=== PATIENT | male | born 1975 | race Two or more races ===

== ENCOUNTER 2018-12-04 06:52 | Emergency (ER) | payer OTHER ==
[2018-12-04] MEDS ORDERED: FAMOTIDINE 20 MG/50 ML IVPB 20 MG/50 ML MG IVPB ONE ×2 (07:58→08:05)
[2018-12-04] MEDS ORDERED: PANTOPRAZOLE 40 MG TABLET (FP) PO ONE (07:58)
[2018-12-04] MEDS ORDERED: MECLIZINE HCL 25 MG TABLET (FP) PO ONE (07:58)
[2018-12-04] MEDS ORDERED: MECLIZINE HCL 25 MG TABLET (FP) ONE (08:05)
[2018-12-04] MEDS ORDERED: PANTOPRAZOLE 40 MG TABLET (FP) ONE (08:05)
[2018-12-04 08:11] VITALS: BP 119/82; PULSE 71; TEMP 98; BMI 32.5
[2018-12-04 08:38] LABS: HEMATOCRIT 44.3 % (35.4-49); HEMOGLOBIN 15.6 GM/dL (11.7-16.9); LYMPH % 34.1 % (8-40); MCH 29.4 pg (25.7-33.7); MCHC 35.2 g/dl (32.0-35.9); MEAN CELL VOLUME 83.6 fl (80-96); MEAN PLT VOLUME 8.7 fl (7.5-11.1); NEUT % 57.9 % (42.8-82.8); PLATELET COUNT 229 K/MM3 (134-434); RDW 13.4 % (11.9-15.9); WHITE BLOOD COUNT 4.8 K/mm3 (4.0-10.0)
--- NOTE | 2018-12-04 08:40 | PDOC ---
History of Present Illness - General Chief Complaint: Chest Pain Stated Complaint: RIGHT CHEST PAIN/NAUSEA Time Seen by Provider: 12/04/18 07:27 History Source: Patient Exam Limitations: No Limitations - History of Present Illness Initial Comments: 12/04/18 08:36 43-year-old male with no past medical history presents with 2 complaints. The patient reports that yesterday he was in his usual state health, he woke up this morning with approximately at 4:00 AM, the patient suddenly felt vertiginous-like symptoms. Worsened with movements and IV movements. Stated when he rested in bed that the symptoms improved. Denies headaches. First-time episode. Incidentally, patient also reported 2 weeks of intermittent left upper quadrant pain. Stated that burning like in nature worsened with eating spicy foods. Denies short of breath or exertional component. Denies any family history of cardiac disease. Smokes intermittent cigarettes. Denies chest pain at the moment. Past History - Past Medical History Allergies/Adverse Reactions: Allergies Allergy/AdvReac Type Severity Reaction Status Date / Time No Known Allergies Allergy Verified 12/04/18 07:48 Home Medications: Ambulatory Orders Meclizine HCl 25 mg PO Q6H PRN #20 tablet 12/04/18 Pantoprazole Sodium [Protonix] 40 mg PO DAILY #30 tablet. 12/04/18 Ranitidine HCl [Zantac] 150 mg PO BID PRN #20 tablet 12/04/18 COPD: No - Immunization History Immunization Up to Date: No - Suicide/Smoking/Psychosocial Hx Smoking History: Never smoked Have you smoked in the past 12 months: No Information on smoking cessation initiated: No Hx Alcohol Use: No Drug/Substance Use Hx: No Review of Systems - Review of Systems Able to Perform ROS?: Yes Comments:: 12/04/18 08:37 GENERAL/CONSTITUTIONAL: [No fever or chills. No weakness. No weight change.] HEAD, EYES, EARS, NOSE AND THROAT: [No change in vision. No ear pain or discharge. No sore throat.] CARDIOVASCULAR: [No chest pain or shortness of breath.] RESPIRATORY: [No cough, wheezing, or hemoptysis.] GASTROINTESTINAL: [No nausea, vomiting, diarrhea or constipation. No rectal bleeding.] +abdominal pain. GENITOURINARY: [No dysuria, frequency, or change in urination.] MUSCULOSKELETAL: [No joint or muscle swelling or pain. No neck or back pain.] SKIN AND BREASTS: [No rash or easy bruising.] NEUROLOGIC: [No headache, loss of consciousness, or loss of sensation.] +vertigo PSYCHIATRIC: [No depression or anxiety.] ENDOCRINE: [No increased thirst. No abnormal weight change.] HEMATOLOGIC/LYMPHATIC: [No anemia, easy bleeding, or history of blood clots.] ALLERGIC/IMMUNOLOGIC: [No hives or skin allergy. No latex allergy.] *Physical Exam - Vital Signs Last Vital Signs Temp Pulse Resp BP Pulse Ox 98.0 F 71 16 119/82 98 12/04/18 07:00 12/04/18 07:00 12/04/18 07:00 12/04/18 07:00 12/04/18 07:57 - Physical Exam Comments: 12/04/18 08:38 GENERAL: Awake, alert, and fully oriented, in no acute distress HEAD: No signs of trauma EYES: PERRLA, EOMI, sclera anicteric, conjunctiva clear ENT: Auricles normal inspection, hearing grossly normal, nares patentMoist mucosa NECK: Normal ROM, supple LUNGS: Breath sounds equal, clear to auscultation bilaterally. No wheezes, and no crackles HEART: Regular rate and rhythm, normal S1 and S2, no murmurs, rubs or gallops ABDOMEN: Soft, No guarding, no rebound. No masses. + TTP LUQ. EXTREMITIES: Normal range of motion, no edema. No clubbing or cyanosis. No cords, erythema, or tenderness NEUROLOGICAL: Cranial nerves II through XII intact. Normal speech, no dysmetria. rapid alternating normal. 5/5 strength upper and lower extremities. Sensation intact throughout. No pronator drift. +jack pal pike maneuver. SKIN: Warm, Dry, normal turgor, no rashes or lesions noted. Moderate Sedation - Procedure Monitoring Vital Signs: Procedure Monitoring Vital Signs Temperature 98.0 F 12/04/18 07:00 Pulse Rate 71 12/04/18 07:00 Respiratory Rate 16 12/04/18 07:00 Blood Pressure 119/82 12/04/18 07:00 O2 Sat by Pulse Oximetry (%) 98 12/04/18 07:57 Heart Score/ECG Review #1 ECG reviewed & interpreted by me at: 07:20 12/04/18 08:40 NSR 63, no std/connie, normal axis, normal intervals, QTC 419 msec ED Treatment Course - LABORATORY CBC & Chemistry Diagram: 12/04/18 08:17 12/04/18 08:17 - RADIOLOGY Radiology Studies Ordered: Category Date Time Status CHEST X-RAY PORTABLE* [RAD] Stat Radiology 12/04/18 07:58 Completed - Medications Given in the ED: ED Medications Discontinued Medications Generic Name Dose Route Start Last Admin Trade Name dAriana PRN Reason Stop Dose Admin Famotidine/Sodium Chloride 20 mg in 50 mls @ 100 mls/hr 12/04/18 07:58 08:25 Pepcid 20 Mg Premixed Ivpb - IVPB 12/04/18 08:27 100 mls/hr ONCE ONE Administration Meclizine HCl 50 mg 12/04/18 07:58 12/04/18 08:25 Antivert - PO 12/04/18 07:59 50 mg ONCE ONE Administration Pantoprazole Sodium 40 mg 12/04/18 07:58 12/04/18 08:25 Protonix - PO 12/04/18 07:59 40 mg ONCE ONE Administration Medical Decision Making - Medical Decision Making 12/04/18 08:39 Vital Signs Temp Pulse Resp BP Pulse Ox 98.0 F 71 16 119/82 98 12/04/18 07:00 12/04/18 07:00 12/04/18 07:00 12/04/18 07:00 12/04/18 07:57 1. Vertigo: This is likely peripheral vertigo and unlikely be to be central. Trial antivert, IVF and reassess. 2. Abdominal pain. This is not likely to be ACS and more likely to be gastritis vs. PUD. Labs including lipase, troponin (though again, unlikely to be ACS). Trial GERD medications and reassess. 12/04/18 09:32 CBC, BMP 12/04/18 08:17 12/04/18 08:17 CMP Sodium 140 mmol/L (136-145) 12/04/18 08:17 Potassium 4.1 mmol/L (3.5-5.1) 12/04/18 08:17 Chloride 107 mmol/L (98-107) 12/04/18 08:17 Carbon Dioxide 29 mmol/L (21-32) 12/04/18 08:17 Anion Gap 5 MMOL/L (8-16) L 12/04/18 08:17 BUN 16 mg/dL (7-18) 12/04/18 08:17 Creatinine 0.9 mg/dL (0.55-1.3) 12/04/18 08:17 Creat Clearance w eGFR > 60 (>60) 12/04/18 08:17 Random Glucose 93 mg/dL (74-106) 12/04/18 08:17 Calcium 8.7 mg/dL (8.5-10.1) 12/04/18 08:17 Total Bilirubin 0.5 mg/dL (0.2-1) 12/04/18 08:17 AST 15 U/L (15-37) 12/04/18 08:17 ALT 33 U/L (13-61) 12/04/18 08:17 Alkaline Phosphatase 83 U/L (45-117) 12/04/18 08:17 Creatine Kinase 104 U/L (26-308) 12/04/18 08:17 Troponin I < 0.02 ng/ml (0.00-0.05) 12/04/18 08:17 Total Protein 6.6 g/dl (6.4-8.2) 12/04/18 08:17 Albumin 3.7 g/dl (3.4-5.0) 12/04/18 08:17 Lipase 194 U/L (73-393) 12/04/18 08:17 Labs reviewed. No acute findings. Chest xray reviewed. No acute findings. Vertigo now resolved. GERD-like pain resolved. Pt feels comfortable going home. Discharge diagnosis: Peripheral vertigo and gastritis I discussed the physical exam findings, ancillary test results and final diagnoses with the patient. I answered all of the patient's questions. The patient was satisfied with the care received and felt comfortable with the discharge plan and treatment plan. The patient will call their primary care physician within 24 hours to arrange follow-up and will return to the Emergency Department with any new, persistant or worsening symptoms. *DC/Admit/Observation/Transfer Diagnosis at time of Disposition: Gastritis Qualifiers: Gastritis type: unspecified gastritis Chronicity: acute Gastritis bleeding: without bleeding Qualified Code(s): K29.00 - Acute gastritis without bleeding Peripheral vertigo Qualifiers: Laterality: unspecified laterality Qualified Code(s): H81.399 - Other peripheral vertigo, unspecified ear - Discharge Dispostion Disposition: HOME Condition at time of disposition: Improved Decision to Admit order: No - Prescriptions Prescriptions: Meclizine HCl 25 mg PO Q6H PRN #20 tablet PRN Reason: Vertigo Pantoprazole Sodium [Protonix] 40 mg PO DAILY #30 tablet. Ranitidine HCl [Zantac] 150 mg PO BID PRN #20 tablet PRN Reason: Gastritis - Referrals - Patient Instructions Printed Discharge Instructions: DI for Vertigo, DI for Gastritis Additional Instructions: Your workup including chest xray, labs including troponin, and EKG is normal. I believe that you have had something called peripheral vertigo. Take 25 mg meclizine every 6 hours as needed for dizziness. It may take several days before your symptoms resolve. For your stomach pain, it is likely gastritis. Please avoid spicy foods. Take 40 mg protonix once a day. For additional relief, take 150 mg zantac every 12 hours as needed. Please follow up with your doctor. If you have difficulty breathing or uncontrollable chest pain, please return to the ER. - Post Discharge Activity
[2018-12-04 09:07] LABS: ALBUMIN 3.7 g/dl (3.4-5.0); ALK PHOS 83 U/L (45-117); ANION GAP 5 MMOL/L (8-16); BILIRUBIN,TOTAL 0.5 mg/dL (0.2-1); BLOOD UREA NITROGEN 16 mg/dL (7-18); CALCIUM 8.7 mg/dL (8.5-10.1); CHLORIDE 107 mmol/L (98-107); CO2 29 mmol/L (21-32); CREATININE 0.9 mg/dL (0.55-1.3); GLUCOSE,RANDOM 93 mg/dL (74-106); LIPASE 194 U/L (73-393); POTASSIUM 4.1 mmol/L (3.5-5.1); SGOT/AST 15 U/L (15-37); SGPT/ALT 33 U/L (13-61); SODIUM 140 mmol/L (136-145); TOT PROT 6.6 g/dl (6.4-8.2)
[2018-12-04] MEDS ORDERED: ACETAMINOPHEN 1000 MG/100 ML VIAL (NON FORMULARY) IVPB ONE (09:11)
[2018-12-04] MEDS ORDERED: ONDANSETRON 4 MG/2 ML VIAL IVPB ONE (09:11)
--- NOTE | 2018-12-04 10:27 | EKG ---
Test Reason : Blood Pressure : / mmHG Vent. Rate : 063 BPM Atrial Rate : 063 BPM P-R Int : 164 ms QRS Dur : 108 ms QT Int : 410 ms P-R-T Axes : 036 047 037 degrees QTc Int : 419 ms NORMAL SINUS RHYTHM NORMAL ECG NO PREVIOUS ECGS AVAILABLE Confirmed by ROXIE LUNDBERG MD ([id number]) on 12/04/2018 10:27:12 AM Referred By: Confirmed By:ROXIE LUNDBERG MD
== END 2018-12-04 09:57 | disposition home or self-care (01) ==
LOC: JER 06:52
PROC: 3E033GC Introduction of Other Therapeutic Substance into Peripheral Vein, Percutaneous Approach (ICD-10-PCS; principal; 2018-12-04)
PROC: 3E033GC Introduction of Other Therapeutic Substance into Peripheral Vein, Percutaneous Approach (ICD-10-PCS; 2018-12-04)
DX: K29.00 Acute gastritis without bleeding (principal); H81.399 Other peripheral vertigo, unspecified ear
CPT/HCPCS: 36415; 71045-TC-FY; 80053; 82550; 83690; 84484; 85025; 93005; 93010; 96365; 96375; 99282-25

== ENCOUNTER 2021-05-18 22:07 | Emergency (ER) | payer OTHER ==
[2021-05-18 22:17] VITALS: TEMP 98.1; BMI 33.0
[2021-05-18 23:39] LABS: BASO % 0.3 % (0-2.0); EOS % 2.3 % (0-4.5); HEMATOCRIT 42.1 % (35.4-49); HEMOGLOBIN 14.7 GM/dL (11.7-16.9); LYMPH % 39.6 % (8-40); MCH 28.7 pg (25.7-33.7); MEAN PLT VOLUME 8.2 fl (7.5-11.1); MONO % 7.2 % (3.8-10.2); NEUT % 50.6 % (42.8-82.8); PLATELET COUNT 246 10^3/uL (134-434); RBC 5.13 M/mm3 (4.00-5.60); RDW 13.4 % (11.9-15.9); WHITE BLOOD COUNT 6.5 K/mm3 (4.0-10.0)
[2021-05-18 23:58] LABS: CHLORIDE 109 mmol/L (98-107); SODIUM 141 mmol/L (136-145)
[2021-05-19] LABS: ANION GAP 6 MMOL/L (8-16); BLOOD UREA NITROGEN 20.7 mg/dL (7-18); CALCIUM 8.2 mg/dL (8.5-10.1); CO2 26 mmol/L (21-32); GLUCOSE,RANDOM 92 mg/dL (74-106)
[2021-05-19 00:03] LABS: CREATININE 0.9 mg/dL (0.55-1.3); SGOT/AST 16 U/L (15-37); SGPT/ALT 27 U/L (13-61)
[2021-05-19 00:05] LABS: BILIRUBIN,TOTAL 0.3 mg/dL (0.2-1); TOT PROT 6.9 g/dl (6.4-8.2)
[2021-05-19 00:06] LABS: ALK PHOS 106 U/L (45-117)
[2021-05-19 00:10] LABS: N-TERMINAL BNP 20.2 pg/ml (5-125)
[2021-05-19 00:30] VITALS: BP 142/76; PULSE 82
== END 2021-05-19 00:30 | disposition home or self-care (01) ==
LOC: JER 22:07
DX: R07.9 Chest pain, unspecified (principal)
CPT/HCPCS: 36415; 71046-TC-FY; 80053; 82550; 82553; 83735; 83880; 84484; 85025; 93005; 93010; 99285-25; C9803; U0003; U0005